=== PATIENT | male | born 1980 | race Two or more races ===

== ENCOUNTER 2025-06-05 11:04 | Emergency (ER) | payer MEDICAID ==
[~2025-06-05] VITALS: Ht 152.4 cm; Wt 54.4 kg
[2025-06-05 11:14] VITALS: TEMP 98.2
[2025-06-05] MEDS ORDERED: IBUP-1490 PO (11:45)
[2025-06-05] MEDS ORDERED: IBUPROFEN 600 MG TABLET ONE (11:53)
[2025-06-05] MEDS: IBUPROFEN 600 MG TABLET PO ONE (12:00)
[2025-06-05 12:09] VITALS: BP 104/61; O2SAT 97
== END 2025-06-05 13:00 | disposition home or self-care (01) ==
LOC: ER 11:04
DX: G89.29 Other chronic pain (principal); M54.50 Low back pain, unspecified; Z59.00 Homelessness unspecified